=== PATIENT | female | born 1955 | race Caucasian/White ===

== ENCOUNTER 2016-12-20 14:38 | Emergency (ER) | payer BC ==
[~2016-12-20] VITALS: Ht 170.2 cm; Wt 84.7 kg
[2016-12-20 15:48] LABS: HEMATOCRIT 39.1 % (36.0-46.0); MCH 27.6 PG (29.0-34.0); MCV 83.5 FL (83-99); MEAN PLAT.VOLUME 10.6 uM^3 (9.5-12.4); RBC DIS.WIDTH-CV 13.3 % (11.8-14.6); RBC DIS.WIDTH-SD 40.5 % (39-53); RED BLOOD COUNT 4.68 M/uL (3.80-5.20)
[2016-12-20 15:50] LABS: ADD MIUA? YES; BILIRUBIN NEGATIVE; BLOOD MODERATE; COLOR YELLOW ((YELLOW)); GLUCOSE (STRIP) NEGATIVE; KETONES 5; LEUKOCYTES TRACE; NITRITE NEGATIVE; PROTEIN (STRIP) 100; SPECIFIC GRAVITY 1.018 (1.000-1.030); UROBILINOGEN 0.2 MG/DL (0.2-1.0)
[2016-12-20 16:00] LABS: PLATELET COUNT 363 K/uL (156-360); WHITE BLOOD COUNT 13.5 K/uL (4.1-10.2)
[2016-12-20 16:01] LABS: CHLORIDE 103 mEq/L (99-109); POTASSIUM 3.6 mEq/L (3.7-5.4); SODIUM 138 mEq/L (136-147)
[2016-12-20 16:02] LABS: BACTERIA RARE /HPF; EPITHELIAL CELLS RARE /HPF; MUCUS 1+ /LPF; RED BLOOD CELLS 15-20 /HPF (0-5); UCUL ADDED? NO; WHITE BLOOD CELLS 0-5 /HPF (0-5)
[2016-12-20 16:03] LABS: GLUCOSE 130 mg/dL (70-99)
[2016-12-20 16:04] LABS: ANION GAP 12 MEQ/L (2-14)
[2016-12-20 16:05] LABS: TOTAL BILIRUBIN 0.8 mg/dL (0.0-1.0)
[2016-12-20 16:06] LABS: ALKALINE PHOSPHATASE 61 IU/L (3-129)
[2016-12-20 16:07] LABS: GFR ESTIMATE (CALCULATED) > 59 mL/min/
[2016-12-20 16:08] LABS: UREA NITROGEN (BUN) 7 mg/dL (9-23)
[2016-12-20 16:10] LABS: LIPASE 7 U/L (1.0-51.0)
[2016-12-20] MEDS ORDERED: PRILOSEC OTC20 MG PO (16:34)
[2016-12-20] MEDS ORDERED: ATORVASTATIN CA10 MG PO (16:35)
[2016-12-20] MEDS ORDERED: ALENDRONATE SOD70 MG PO (16:35)
[2016-12-20] MEDS ORDERED: VITAMIN D-32000 UNI2 PO (18:24)
[2016-12-20] MEDS ORDERED: NORCO 5/3251 TABLET PO (19:43)
[2016-12-20] MEDS ORDERED: AUGMENTIN875 MG PO (19:43)
[2016-12-20] MEDS ORDERED: ZOFRAN4 MG PO (19:43)
[2016-12-20 21:06] VITALS: BP 146/70
== END 2016-12-20 21:08 | disposition home or self-care (01) ==
LOC: EME 14:38
DX: K81.9 Cholecystitis, unspecified (principal); R31.9 Hematuria, unspecified; D72.829 Elevated white blood cell count, unspecified; K57.30 Diverticulosis of large intestine without perforation or abscess without bleeding; K76.0 Fatty (change of) liver, not elsewhere classified; E78.5 Hyperlipidemia, unspecified; Z90.710 Acquired absence of both cervix and uterus
CPT/HCPCS: 74176; 76705; 80053; 81003; 83690; 85027; 99281; 99285; J1885; J2543

== ENCOUNTER 2017-01-30 10:05 | Day surgery (SDC) | payer BC ==
[~2017-01-30] VITALS: Ht 167.6 cm; Wt 81.0 kg
[~2017-01-30 10:05] MED LIST: ALENDRONATE SOD70 MG PO; ATORVASTATIN CA10 MG PO; AUGMENTIN875 MG PO; NORCO 5/3251 TABLET PO; PRILOSEC OTC20 MG PO; VITAMIN D-32000 UNI2 PO; ZOFRAN4 MG PO
[2017-01-30 10:29] VITALS: BP 151/96
[2017-01-30] MEDS ORDERED: COLACE100 MG PO (13:47)
[2017-01-30] MEDS ORDERED: NORCO 5/3251 TABLET PO (13:47)
[2017-01-30 14:49] VITALS: BP 158/77
[2017-01-30 15:37] VITALS: BP 121/66
[2017-01-30 16:47] VITALS: BP 127/66
== END 2017-01-30 17:14 | disposition home or self-care (01) ==
LOC: SDC
PROC: 0FT44ZZ Resection of Gallbladder, Percutaneous Endoscopic Approach (ICD-10-PCS; principal; 2017-01-30)
DX: K80.10 Calculus of gallbladder with chronic cholecystitis without obstruction (principal); K82.1 Hydrops of gallbladder; E78.5 Hyperlipidemia, unspecified; M81.0 Age-related osteoporosis without current pathological fracture; K21.9 Gastro-esophageal reflux disease without esophagitis
CPT/HCPCS: 87070; 87075; 87205; 88304; 93005; J0131; J1100; J1170; J2250; J2405; J2710; J3010